=== PATIENT | male | born 1990 | race African-American/Black ===

== ENCOUNTER 2019-11-06 14:52 | Emergency (ER) | payer OTHER ==
[2019-11-06] MEDS ORDERED: IBUPROFEN 800 MG TABLET PO ONE (15:03)
--- NOTE | 2019-11-06 15:05 | ER Document Report ---
HPI - HPI Patient complains to provider of: Right hand injury Time Seen by Provider: 11/06/19 15:00 Onset: This afternoon Onset/Duration: Sudden Quality of pain: Achy Pain Level: 1 Context: Patient states that he fell back landing on his right hand. Patient has a history of previous right hand orthopedic surgery in the past. Patient is concerned about his hardware in that hand. Patient is left-hand dominant. Patient with abrasions to the right hand. Tetanus immunization is currently up-to-date. Associated Symptoms: Other - Right hand pain Exacerbated by: Movement Relieved by: Denies Similar symptoms previously: Yes Recently seen / treated by doctor: No - ROS ROS below otherwise negative: Yes Systems Reviewed and Negative: Yes All other systems reviewed and negative - NEURO Neurology: DENIES: Weakness - GASTROINTESTINAL Gastrointestinal: DENIES: Nausea - MUSCULOSKELETAL Musculoskeletal: REPORTS: Extremity pain, Swelling - DERM Skin Color: Normal Skin Problems: Abrasion Past Medical History - General Information source: Patient - Social History Smoking Status: Current Some Day Smoker Chew tobacco use (# tins/day): No Frequency of alcohol use: Social Drug Abuse: None Occupation: Family History: Reviewed & Not Pertinent Patient has suicidal ideation: No Patient has homicidal ideation: No - Medical History Medical History: Negative Past Surgical History: Reports: Hx Orthopedic Surgery - right hand - Immunizations Hx Diphtheria, Pertussis, Tetanus Vaccination: Yes Vertical Provider Document - CONSTITUTIONAL Agree With Documented VS: Yes Exam Limitations: No Limitations General Appearance: WD/WN, No Apparent Distress - HEENT HEENT: Atraumatic, Normocephalic - NECK Neck: Normal Inspection - RESPIRATORY Respiratory: No Respiratory Distress - CARDIOVASCULAR Pulses: Normal: Radial - MUSCULOSKELETAL/EXTREMETIES Musculoskeletal/Extremeties: MAEW, Tender - Right hand tenderness over the fourth metacarpal, numerous abrasions to the dorsal aspect of the right hand, Edema. negative: Eccymosis - NEURO Level of Consciousness: Awake, Alert, Appropriate Motor/Sensory: No Motor Deficit - DERM Integumentary: Warm, Dry Notes: Multiple abrasions to the dorsum of the right hand Course - Re-evaluation Re-evalutation: 11/06/19 15:32 X-ray reviewed, no concern for fracture or hardware failure at this time. Will immobilize and refer patient to his orthopedic doctor for recheck. - Vital Signs Vital signs: Temp Pulse Resp BP Pulse Ox 98.9 F 80 16 159/91 H 97 11/06/19 15:01 11/06/19 14:58 11/06/19 14:58 11/06/19 14:58 11/06/19 14:58 - Diagnostic Test Radiology reviewed: Image reviewed, Reports reviewed Procedures - Immobilization Right Hand Pre-Proc Neuro Vasc Exam: Normal Immobilizer type: Cock-up Performed by: PCT Post-Proc Neuro Vasc Exam: Normal Alignment checked and good: Yes Discharge - Discharge Clinical Impression: Fall Qualifiers: Encounter type: initial encounter Qualified Code(s): W19.XXXA - Unspecified fall, initial encounter Sprain of right hand Qualifiers: Encounter type: initial encounter Qualified Code(s): S63.91XA - Sprain of unspecified part of right wrist and hand, initial encounter Hand abrasion Qualifiers: Encounter type: initial encounter Laterality: right Qualified Code(s): S60.511A - Abrasion of right hand, initial encounter Condition: Stable Disposition: HOME, SELF-CARE Instructions: Abrasions ([facility]), Ice & Elevation ([facility]), Sprain ([facility]), Temporary Splint ([facility]) Additional Instructions: Return immediately for any new or worsening symptoms Followup with your orthopedic care provider, call tomorrow to make a followup appointment Prescriptions: Naproxen [Naprosyn 250 Nmg Tablet] 1 tab PO BID #14 tablet Referrals: HAJA WALLACE MD [[facility]AFF] - Follow up as needed
--- NOTE | 2019-11-06 15:27 | RADIOLOGY REPORT (SQ) ---
EXAM DESCRIPTION: HAND RIGHT 3 VIEWS IMAGES COMPLETED DATE/TIME: 11/06/2019 3:17 pm REASON FOR STUDY: fall, r hand pain over 4 MC COMPARISON: None. EXAM PARAMETERS: NUMBER OF VIEWS: Three views. TECHNIQUE: AP, lateral and oblique radiographic images acquired of the right hand. LIMITATIONS: None. FINDINGS: MINERALIZATION: Normal. BONES: No acute fracture or dislocation. Hardware in the 4th metacarpal. No worrisome bone lesions. JOINTS: No effusions. SOFT TISSUES: No soft tissue swelling. No foreign body. OTHER: No other significant finding. IMPRESSION: HARDWARE IN THE 4TH METACARPAL. NO RADIOGRAPHIC EVIDENCE OF ACUTE INJURY. TECHNICAL DOCUMENTATION: JOB ID: [id number] 2010 [employer]- All Rights Reserved Reading location - IP/workstation name: [email or web address]
[2019-11-06 15:35] VITALS: BP 140/92
== END 2019-11-06 15:39 | disposition home or self-care (01) ==
LOC: ER 14:52
DX: S63.91XA Sprain of unspecified part of right wrist and hand, initial encounter (principal); S60.511A Abrasion of right hand, initial encounter; W19.XXXA Unspecified fall, initial encounter; F17.200 Nicotine dependence, unspecified, uncomplicated; Z98.890 Other specified postprocedural states
CPT/HCPCS: 99283